=== PATIENT | male | born 1940 | race Caucasian/White ===

== ENCOUNTER 2018-03-07 13:51 | Observation (INO) | payer OTHER ==
[2018-03-07 14:25] LABS: ADD MAN DIFF? NO
[2018-03-07 14:27] LABS: WHITE BLOOD COUNT 5.2 10^3/ul (4.8-10.8)
[2018-03-07 14:27] LABS: BASOPHILS % 0.4 % (0.0-2.0); EOSINOPHILS # 0.1 10^3/ul (0.0-0.5); EOSINOPHILS % 1.9 % (0.0-7.0); HEMATOCRIT 42.7 % (42.0-52.0); HEMOGLOBIN 14.1 g/dl (14.0-18.0); LYMPHOCYTES # 1.2 10^3/ul (0.8-2.9); LYMPHOCYTES % 23.8 % (15.0-51.0); MEAN CORPUSCULAR HEMOGLOBIN 30.2 pg (29.0-33.0); MEAN CORPUSCULAR VOLUME 91.4 fl (82.0-101.0); MEAN PLATELET VOLUME 10.5 fl (7.4-10.4); MONOCYTE # 0.4 10^3/ul (0.3-0.9); MONOCYTES % 8.3 % (0.0-11.0); NEUTROPHIL # 3.4 10^3/ul (1.6-7.5); NEUTROPHILS % 65.4 % (39.0-77.0); PLATELET COUNT 142 10^3/UL (140-415); RED BLOOD COUNT 4.67 10^6/ul (4.70-6.10); RED CELL DISTRIBUTION WIDTH 13.2 % (11.5-14.5)
[2018-03-07 14:45] LABS: ANION GAP 8 (8-16); BLOOD UREA NITROGEN 19 mg/dl (7-20); CALCIUM 8.9 mg/dl (8.4-10.2); CARBON DIOXIDE 28 mmol/L (21-31); CHLORIDE 111 mmol/L (97-110); CREATININE 0.95 mg/dl (0.61-1.24); GLUCOSE 118 mg/dl (70-220); POTASSIUM 4.1 mmol/L (3.5-5.1); SODIUM 143 mmol/L (135-144)
[2018-03-07 15:19] LABS: B-TYPE NATRIURETIC PEPTIDE 281 PG/ML (0-450); TROPONIN-I < 0.012 ng/ml (0.000-0.120)
[2018-03-07] MEDS ORDERED: ONDANSETRON 4 MG INJ IV ×2 (18:00)
[2018-03-07] MEDS ORDERED: NITROGLYCERIN (SL) 0.4 MG TAB SL (18:00)
[2018-03-07] MEDS ORDERED: NACL 0.9% 3 ML SYG IV (18:00)
[2018-03-07] MEDS ORDERED: DOCUSATE SODIUM 100 MG CAP PO (18:00)
[2018-03-07] MEDS ORDERED: ACETAMINOPHEN 325 MG TAB PO ×2 (18:00)
[2018-03-07] MEDS ORDERED: MAGNESIUM HYDROXIDE 30ML CUP PO (18:00)
[2018-03-07] MEDS ORDERED: hydrALAzine 20 MG INJ IV (18:30)
[2018-03-07] MEDS: TERAZOSIN 5 MG CAP PO (22:08)
[2018-03-07] MEDS: ATORVASTATIN 20 MG TAB PO (22:08)
[2018-03-07 23:03] LABS: CREATINE KINASE 51 IU/L (23-200)
[2018-03-07 23:14] LABS: CK INDEX 0.8; CK-MB 0.43 ng/ml (0.0-2.4); TROPONIN-I 0.013 ng/ml (0.000-0.120)
[2018-03-08 04:17] LABS: ADD MAN DIFF? NO
[2018-03-08 04:19] LABS: WHITE BLOOD COUNT 5.2 10^3/ul (4.8-10.8)
[2018-03-08 04:19] LABS: BASOPHILS % 0.4 % (0.0-2.0); EOSINOPHILS # 0.1 10^3/ul (0.0-0.5); EOSINOPHILS % 2.5 % (0.0-7.0); HEMATOCRIT 42.2 % (42.0-52.0); LYMPHOCYTES # 1.4 10^3/ul (0.8-2.9); LYMPHOCYTES % 27.3 % (15.0-51.0); MEAN CORPUSCULAR HEMOGLOBIN 30.1 pg (29.0-33.0); MEAN CORPUSCULAR HGB CONC 33.2 g/dl (32.0-37.0); MEAN CORPUSCULAR VOLUME 90.8 fl (82.0-101.0); MONOCYTE # 0.4 10^3/ul (0.3-0.9); MONOCYTES % 7.6 % (0.0-11.0); NEUTROPHIL # 3.2 10^3/ul (1.6-7.5); NEUTROPHILS % 61.8 % (39.0-77.0); PLATELET COUNT 137 10^3/UL (140-415); POSITIVE DIFF @See below; RED BLOOD COUNT 4.65 10^6/ul (4.70-6.10); RED CELL DISTRIBUTION WIDTH 13.1 % (11.5-14.5)
[2018-03-08 04:46] LABS: ANION GAP 10 (8-16); BLOOD UREA NITROGEN 17 mg/dl (7-20); CALCIUM 8.6 mg/dl (8.4-10.2); CARBON DIOXIDE 27 mmol/L (21-31); CHLORIDE 111 mmol/L (97-110); CHOL/HDL RATIO 2.8 RATIO; CHOLESTEROL 109 mg/dl (100-200); CREATININE 0.95 mg/dl (0.61-1.24); GLUCOSE 85 mg/dl (70-220); HDL CHOLESTEROL 38 mg/dl (31-75); LDL CHOLESTEROL,CALCULATED 59 mg/dl; POTASSIUM 4.1 mmol/L (3.5-5.1); SODIUM 144 mmol/L (135-144); TRIGLYCERIDES 59 mg/dl (0-149)
[2018-03-08 04:47] LABS: CREATINE KINASE 47 IU/L (23-200)
[2018-03-08 04:54] LABS: CK INDEX 1.4; CK-MB 0.68 ng/ml (0.0-2.4); TROPONIN-I 0.023 ng/ml (0.000-0.120)
[2018-03-08 05:12] LABS: THYROID STIMULATING HORMONE 0.339 MIU/L (0.465-4.680)
[2018-03-08] MEDS: ASPIRIN (EC) 81 MG TAB PO (08:03)
[2018-03-08] MEDS: FUROSEMIDE 40 MG TAB PO (08:04)
[2018-03-08] MEDS: LOSARTAN 50 MG TAB PO (08:04)
== END 2018-03-08 14:40 | disposition home or self-care (01) ==
LOC: E/R 13:51 → TEL 17:41
DX: R07.89 Other chest pain (principal); I11.0 Hypertensive heart disease with heart failure; I50.9 Heart failure, unspecified; Z79.82 Long term (current) use of aspirin; Z88.0 Allergy status to penicillin
CPT/HCPCS: 36415; 71045; 80048; 80061; 82550; 82553; 83735; 83880; 84443; 84484; 85025; 93005; 99285-25; G0378